=== PATIENT | male | born 1995 | race Caucasian/White ===

== ENCOUNTER 2021-04-09 10:03 | Emergency (ER) | payer OTHER ==
[~2021-04-09] VITALS: Ht 175.3 cm; Wt 82.0 kg
[2021-04-09 11:15] VITALS: BP 132/65
[2021-04-09] MEDS ORDERED: ERYTHROMYCIN O3.5 GM OS (12:24)
== END 2021-04-09 12:55 | disposition home or self-care (01) | DRG 125 ==
LOC: ED 10:03
DX: S00.212A Abrasion of left eyelid and periocular area, initial encounter (principal); S00.12XA Contusion of left eyelid and periocular area, initial encounter; W01.190A Fall on same level from slipping, tripping and stumbling with subsequent striking against furniture, initial encounter; Y92.009 Unspecified place in unspecified non-institutional (private) residence as the place of occurrence of the external cause